=== PATIENT | female | born 1935 | race Caucasian/White ===

== ENCOUNTER → 2017-01-30 | Outpatient (CLI) | payer OTHER, MEDICARE ==
[~2017-01-30] MED LIST: ACETAMINOPHEN650 M5 PO; AMLODIPINE BESYL5 MG PO; ATIVAN0.5 MG OR; ATIVAN0.5 MG PO; ATORVASTATIN CA20 MG PO; BENTYL 10 MG CA10 MG; BENTYL 10 MG CA10 MG PO; BENTYL10 MG PO; CALCIUM 600 +1 EAC1 PO; CENTRUM SILVER1 EAC1 PO; CENTURY SENIOR1 EAC2 PO; CLARITIN10 M2 PO; CLARITIN10 MG PO; CO Q-10100 MG PO; COLACE100 MG PO; DIOVAN160 MG PO; FISH OIL 1,0001 EAC5 PO; HYOSCYAMIN125 MCG/5 PO; LEVSIN OR; LEVSIN0.125 MG PO; LOCOID 0.1% CRE15 GM TOP; LOCOID15 GM TOP; LORAZEPAM 0.50.5 MG PO; MACROBID 100 M100 M1 PO; MACRODANTIN50 MG PO; MECLIZINE HCL25 M1 PO; MULTI-VITAMIN1 EAC5 PO; NEXIUM 40 MG CA40 M1 PO; NEXIUM40 MG PO; ONDANSETRON HCL4 M3 PO; OS-CAL 500+D C1 EACH PO; PHENERGAN 25 MG25 M1 PO; PLAVIX 75 MG TA75 M1 PO; PLAVIX 75 MG TA75 MG PO; PRAVACHOL20 MG PO; PYRIDIUM200 M1 PO; SERTRALINE HCL25 M1 OR; SIMVASTATIN40 MG PO; SULAR OR; SULAR PO; SULAR25.5 MG PO; SYNTHROID100 MCG PO; THYROID 65 MG OR; TIROSINT100 MCG PO; TOPROL XL50 MG PO; TYLENOL325 MG PO; VITAMIN E100 UNI2 PO; VITAMIN E400 UNIT PO; ZOCOR OR; [UNRECOGNIZED DRUG - OTHER] PO
== END ==
LOC: CAT 10:14
DX: R19.7 Diarrhea, unspecified (principal); R14.0 Abdominal distension (gaseous); R10.9 Unspecified abdominal pain

== ENCOUNTER → 2018-01-31 | Outpatient (CLI) | payer OTHER, MEDICARE | LOC: RAD 11:41 | DX: Z12.31 Encounter for screening mammogram for malignant neoplasm of breast (principal) ==

== ENCOUNTER 2018-03-05 10:59 | Emergency (ER) | payer OTHER, MEDICARE ==
[~2018-03-05] VITALS: Ht 149.9 cm; Wt 86.2 kg
--- NOTE | ~2018-03-05 | EKG ---
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
[2018-03-05 11:37] LABS: BASOPHILS 0.4 % (0.0-2.0); EOSINOPHILS 1.1 % (0.0-3.0); HEMATOCRIT 41.3 % (37.0-47.0); HEMOGLOBIN 14.3 gm/dL (12.0-15.0); LYMPHOCYTES 28.2 % (24.0-44.0); MCH 30.4 pg (26.0-34.0); MCHC 34.5 g/dL (28.0-37.0); MCV 88.1 fL (80.0-100.0); MONOCYTES 6.2 % (1.0-8.0); PLATELET COUNT 388 thou/uL (150-400); POLYS 64.1 % (36.0-66.0); RBC 4.69 mil/uL (4.20-5.00); WBC 9.3 thou/uL (4.0-11.0)
[2018-03-05 11:47] LABS: PROTIME 9.9 Seconds (9.3-11.4)
[2018-03-05 13:07] LABS: ANION GAP 8 mmol/L (7-16); BUN 16 mg/dL (7-18); CALCIUM 9.6 mg/dL (8.5-10.1); CHLORIDE 93 mmol/L (98-107); CO2 25 mmol/L (21-32); CREATININE 0.9 mg/dL (0.6-1.0); GLUCOSE 106 mg/dL (74-106); POTASSIUM 4.3 mmol/L (3.5-5.1); SODIUM 126 mmol/L (136-145)
[2018-03-05 13:12] LABS: URINE BILIRUBIN NEGATIVE (Negative); URINE BLOOD NEGATIVE (Negative); URINE CLARITY CLEAR; URINE COLOR YELLOW; URINE GLUCOSE-RANDOM* NEGATIVE (Negative); URINE KETONES NEGATIVE (Negative); URINE LEUKOCYTES NEGATIVE (Negative); URINE NITRITE NEGATIVE (Negative); URINE PROTEIN (DIPSTICK) NEGATIVE (Negative); URINE SPECIFIC GRAVITY <= 1.005 (1.005-1.035); URINE UROBILINOGEN 0.2 E.U./dl (0.2-1.0)
[2018-03-05 13:16] LABS: ALBUMIN 4.2 g/dL (3.4-5.0); SGOT 25 U/L (15-37); SGPT 31 U/L (30-65); TOTAL BILIRUBIN 0.5 mg/dL (<0.1-1.0); TOTAL PROTEIN 7.9 g/dL (6.4-8.2); TROPONIN-I < 0.04 ng/mL (<0.06)
[2018-03-05] MEDS ORDERED: MECLIZINE HCL25 MG PO (15:19)
[2018-03-05 16:09] VITALS: BP 159/65
== END 2018-03-05 16:25 | disposition home or self-care (01) ==
LOC: ER 10:59
PROVIDERS: Physician Assistant
DX: E87.1 Hypo-osmolality and hyponatremia (principal); R10.9 Unspecified abdominal pain; R42 Dizziness and giddiness; R11.0 Nausea; F41.9 Anxiety disorder, unspecified; Z88.1 Allergy status to other antibiotic agents; Z88.5 Allergy status to narcotic agent; Z88.6 Allergy status to analgesic agent

== ENCOUNTER → 2018-09-25 | Outpatient (CLI) | payer OTHER, MEDICARE ==
[~2018-09-25] VITALS: Ht 149.9 cm; Wt 81.6 kg
[~2018-09-25] MED LIST changes: +AMLODIPINE BESY10 MG PO; +CENTRUM SILVER1 EAC4 PO; +LOSARTAN POTAS100 MG PO; +MECLIZINE HCL25 MG PO; +METOPROLOL SUCC50 MG PO; +PRAVASTATIN SOD80 MG PO; +PRESERVISION A1 EAC2 PO; +SYNTHROID100 MC1 PO
--- NOTE | ~2018-09-25 | PATH ---
[facility] [address] [place] [address] PATHOLOGY RPT PROCEDURE Name: SABRINA GAVIRIA Angela Room #: REG SLIME Manzano.#: [id number] Admission: 09/25/18 Date of : 39 Discharge: Report #: [id number] Path Case #: [id number] [facility] Accession Number: [id number] . 01 Material submitted: . BIOPSY - GASTRIC R/O H. H PYLORI . 01 Clinical history: . Pre-OP DX: Abdominal pain Post-OP DX: Gastritis, hiatal hernia . 02 Diagnosis: Gastric mucosa, gastric R/O H. pylori, endoscopic biopsy: - Mild chronic inflammation. - Negative for intestinal metaplasia or atrophy. - Negative for Helicobacter pylori (properly controlled immunohistochemical stain performed). . (IUV:laura; 09/26/2018) QMS/09/26/2018 . 02 Electronically signed: . Mercedes Whyte MD, Pathologist NPI- [id number] . 01 Gross description: . Received in formalin labeled "Sabrina Gaviria, gastric biopsy," are 2 segments of hicks soft tissue measuring 0.9 x 0.3 x 0.3 cm in aggregate dimensions and ranging from 0.3 to 0.6 cm in maximum dimension. The specimen is submitted entirely in cassette A1. (TSD; 09/25/2018) TOB/TOB . 02 Pathologist provided ICD-10: K29.50 . 02 CPT . 008301, H12742 Specimen Comment: A courtesy copy of this report has been sent to Specimen Comment: [phone], . Specimen Comment: Report sent to / DR JOEL Specimen Comment: A duplicate report has been generated due to demographic updates. Performed at: [address] [place] [id number] [id number] MD Chavez Garcia MD Phone: [phone] [facility] [place] [address] PATHOLOGY RPT PROCEDURE Name: SABRINA GAVIRIA Room #: REG SLIME Boyd#: [id number] Admission: 09/25/18 Date of : 39 Discharge: Report #: [id number] Path Case #: [id number] Performed at: [address] [place] [address] [address] [place], [place] [id number] MD Mercedes Whyte MD Phone: [phone]
--- NOTE | ~2018-09-25 | P ---
[facility] [place] [address] PROCEDURE REPORT Name: WOLF GAVIRIA [facility] [id number] Admission: 09/25/18 Attend Phys: Chapin Rm Discharge: Date of : 37 Report #: [id number] THIS REPORT FOR: //name// CC: Chapin Tompkins MD DATE OF SERVICE: 09/25/2018 PROCEDURE PERFORMED: Upper endoscopy with biopsies. HISTORY OF PRESENT ILLNESS: The patient is an 83-year-old female with a history of carcinoid as well as mid epigastric abdominal pain and low abdominal pain at times. She has a known large hiatal hernia, gastroesophageal reflux disease, takes Nexium on a daily basis. Denies any significant heartburn, but does report increased belching. She denies any dysphagia or odynophagia. She had been on Plavix for a history of TIA. This has been held for the last few days. She denies any nausea or vomiting. She underwent an octreotide scan on 08/21/2018. This showed mild activity in the left lung base, which is also near her large hiatal hernia in the region of the stomach. A CT scan of the abdomen and pelvis earlier in the year showed sludge within the gallbladder, with possible stones and a duodenal diverticulum. Plan is for upper endoscopy. DESCRIPTION OF PROCEDURE: The risks and benefits of the procedure were explained to the patient; those risks including but not limited to bleeding, perforation and the risk of sedation. She understood these risks and gave informed consent. Sedation was given using propofol per anesthesia. Next, using a standard Olympus upper endoscope, the scope was placed in the patient's mouth and advanced under direct vision through the esophagus, stomach and into the first portion of the duodenum. The larynx was normal in appearance. The distal esophagus was somewhat tortuous, but the GE junction was normal. Upon entering the stomach, an obvious large hiatal hernia was noted. There was a small amount of fluid. This was aspirated away. I tried to advance the scope through the hernia, but was unsuccessful. I then placed a stiffening wire within the scope and I was able to advance the scope with some difficulty through the hiatal hernia. Again, approximately 70% of her stomach within the hiatal hernia. I was able to advance the scope into the gastric antrum, which was normal in appearance. The pylorus was normal and patent. I was able to advance the scope into the duodenal bulb and the first portion, but no further. The duodenal mucosa was normal in appearance. The scope was then brought back up into the patient's stomach. Multiple gastric polyps were noted. Because of her symptoms, biopsies were obtained to rule out the possibility of H. pylori. There was no evidence of ulcerations or erosions. No mass lesions were noted within the stomach, but again visualization was somewhat limited due to her large hiatal hernia. The scope was then slowly withdrawn and the procedure [address] [address] PROCEDURE REPORT Name: WOLF GAVIRIA Angela Room #: REG SLIME Boyd#: [id number] Admission: 09/25/18 Attend Phys: Chapin Rm Discharge: Date of : 37 Report #: [id number] terminated. The patient tolerated the procedure well. IMPRESSION: 1. Large hiatal hernia, likely causing increased symptoms of belching and reflux. The patient is on daily Nexium. 2. 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 3. Otherwise normal upper endoscopy. RECOMMENDATIONS: 1. Await biopsy results. 2. Continue daily Nexium. 3. I suspect the patient's large hiatal hernia is causing symptoms of intermittent burping. She is not having nausea or vomiting at this time. She does have mild mid epigastric abdominal pain. There was no evidence of any mass lesions on upper endoscopy today. At this point, we would continue current regimen. If symptoms become worse, could consider surgical options, but the patient is at a higher risk for surgery due to her age and other medical problems. Thank you for allowing me to participate in her care. <ELECTRONICALLY SIGNED> By: Chapin Zarate MD 09/27/18 0808 0845 1026 Chapin Zarate MD /nt
== END | disposition home or self-care (01) ==
LOC: GI 06:45
DX: K29.50 Unspecified chronic gastritis without bleeding (principal); K31.7 Polyp of stomach and duodenum; K44.9 Diaphragmatic hernia without obstruction or gangrene; K21.9 Gastro-esophageal reflux disease without esophagitis; I10 Essential (primary) hypertension; E78.5 Hyperlipidemia, unspecified; E03.9 Hypothyroidism, unspecified; F32.9 Major depressive disorder, single episode, unspecified; F41.9 Anxiety disorder, unspecified; Z95.5 Presence of coronary angioplasty implant and graft; Z86.73 Personal history of transient ischemic attack (TIA), and cerebral infarction without residual deficits; Z86.012 Personal history of benign carcinoid tumor; Z98.0 Intestinal bypass and anastomosis status; Z90.49 Acquired absence of other specified parts of digestive tract; Z98.890 Other specified postprocedural states; Z79.899 Other long term (current) drug therapy
CPT/HCPCS: 62110; 62900

== ENCOUNTER 2019-03-15 17:35 | Emergency (ER) | payer OTHER, MEDICARE ==
[~2019-03-15] VITALS: Ht 160 cm; Wt 111.1 kg
[2019-03-15 18:44] LABS: URINE BILIRUBIN NEGATIVE (Negative); URINE BLOOD NEGATIVE (Negative); URINE CLARITY CLEAR; URINE COLOR YELLOW; URINE GLUCOSE-RANDOM* NEGATIVE (Negative); URINE KETONES NEGATIVE (Negative); URINE LEUKOCYTES-REFLEX NEGATIVE (Negative); URINE NITRITE-REFLEX NEGATIVE (Negative); URINE PROTEIN (DIPSTICK) NEGATIVE (Negative); URINE SPECIFIC GRAVITY <= 1.005 (1.005-1.035); URINE UROBILINOGEN 0.2 E.U./dl (0.2-1.0)
[2019-03-15 19:15] LABS: ABSOLUTE NEUTROPHILS 4.1 thou/uL (1.4-8.2); BASOPHILS 0.7 % (0.0-2.0); EOSINOPHILS 2.8 % (0.0-3.0); HEMATOCRIT 36.4 % (37.0-47.0); HEMOGLOBIN 12.5 gm/dL (12.0-15.0); LYMPHOCYTES 22.2 % (24.0-44.0); MCH 30.2 pg (26.0-34.0); MCHC 34.5 g/dL (28.0-37.0); MCV 87.8 fL (80.0-100.0); MONOCYTES 8.5 % (1.0-8.0); PLATELET COUNT 347 thou/uL (150-400); POLYS 65.8 % (36.0-66.0); RBC 4.15 mil/uL (4.20-5.00); RDW 14.2 % (10.5-14.5); WBC 6.3 thou/uL (4.0-11.0)
[2019-03-15 19:20] LABS: CALCIUM 9.5 mg/dL (8.5-10.1); CREATININE 0.9 mg/dL (0.6-1.0); POTASSIUM 4.1 mmol/L (3.5-5.1)
[2019-03-15 22:41] VITALS: BP 165/69
--- NOTE | 2019-03-16 22:40 | EKG ---
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: : 1935 Requested By: Jurgen Mina Order Number: [id number] MD: Rhoit Ballard Measurements Intervals [place] Rate: 77 P: 38 [place]: 192 QRS: -3 QRSD: 92 T: 21 QT: 378 QTc: 428 Interpretive Statements Sinus rhythm Low voltage, precordial leads Probable anteroseptal infarct, old Compared to ECG 03/05/2018 11:20:04 Low QRS voltage now present Myocardial infarct finding now present Electronically Signed On 03-16-2019 22:40:32 CDT by Rohit Ballard [email or web address] ��������������������������������������������� <ELECTRONICALLY SIGNED> ���������������������������������������� By: Rohit Ballard MD ��������������������������������������������� 03/16/19 2240 1753 1753 Rohit Ballard MD /EPI
== END 2019-03-15 22:42 | disposition home or self-care (01) ==
LOC: ER 17:35
PROVIDERS: Emergency Medicine
DX: R53.1 Weakness (principal); I10 Essential (primary) hypertension; E78.5 Hyperlipidemia, unspecified; E03.9 Hypothyroidism, unspecified; K21.9 Gastro-esophageal reflux disease without esophagitis; Z86.73 Personal history of transient ischemic attack (TIA), and cerebral infarction without residual deficits; Z79.899 Other long term (current) drug therapy; Z88.1 Allergy status to other antibiotic agents; Z88.5 Allergy status to narcotic agent; Z88.6 Allergy status to analgesic agent; Z88.8 Allergy status to other drugs, medicaments and biological substances

== ENCOUNTER → 2019-03-28 | Outpatient (CLI) | payer OTHER, MEDICARE | LOC: RAD 01:03 | DX: Z12.31 Encounter for screening mammogram for malignant neoplasm of breast (principal) ==

== ENCOUNTER 2019-04-04 16:52 | Emergency (ER) | payer OTHER, MEDICARE ==
[~2019-04-04] VITALS: Ht 175.3 cm; Wt 108.0 kg
[2019-04-04 17:37] LABS: ABSOLUTE NEUTROPHILS 4.1 thou/uL (1.4-8.2); EOSINOPHILS 1.9 % (0.0-3.0); HEMOGLOBIN 12.1 gm/dL (12.0-15.0); LYMPHOCYTES 24.6 % (24.0-44.0); MCHC 34.5 g/dL (28.0-37.0); MONOCYTES 9.6 % (1.0-8.0); PLATELET COUNT 319 thou/uL (150-400); POLYS 62.9 % (36.0-66.0); RBC 4.03 mil/uL (4.20-5.00); WBC 6.6 thou/uL (4.0-11.0)
[2019-04-04 17:47] LABS: ANION GAP 9 mmol/L (7-16); BUN 14 mg/dL (7-18); CALCIUM 9.2 mg/dL (8.5-10.1); CHLORIDE 91 mmol/L (98-107); CO2 26 mmol/L (21-32); CREATININE 0.8 mg/dL (0.6-1.0); GLUCOSE 99 mg/dL (74-106); POTASSIUM 4.2 mmol/L (3.5-5.1); SODIUM 126 mmol/L (136-145)
[2019-04-04 17:55] LABS: TROPONIN-I <0.06 ng/mL (<0.06)
[2019-04-04 17:59] LABS: URINE BILIRUBIN NEGATIVE (Negative); URINE BLOOD NEGATIVE (Negative); URINE CLARITY CLEAR; URINE COLOR YELLOW; URINE GLUCOSE-RANDOM* NEGATIVE (Negative); URINE KETONES NEGATIVE (Negative); URINE NITRITE-REFLEX NEGATIVE (Negative); URINE PROTEIN (DIPSTICK) NEGATIVE (Negative); URINE SPECIFIC GRAVITY <= 1.005 (1.005-1.035); URINE UROBILINOGEN 0.2 E.U./dl (0.2-1.0)
[2019-04-04 18:00] LABS: URINE LEUKOCYTES-REFLEX 1+ (Negative)
[2019-04-04 18:09] LABS: BACTERIA-REFLEX None Seen /HPF (None Seen); CASTS None Seen /LPF (None Seen); CRYSTALS None Seen /LPF (None Seen); SQUAMOUS None Seen /LPF (0-3); URINE RBC None Seen /HPF (0-2); URINE WBC-REFLEX 6-15 Few /HPF (0-5)
[2019-04-04 21:43] VITALS: BP 184/75
--- NOTE | 2019-04-05 10:57 | EKG ---
[place] [address] [facility] [place] [address] ELECTROCARDIOGRAM REPORT Name: WOLF GAVIRIA Room #: [facility]#: [id number] ������������������ Admission: 04/04/19 ������������������ Attend Phys: Discharge: 04/04/19 ������������������ Date of : 39 Report #: [id number] ����������������������������������������������������������������� [id number] THIS REPORT FOR: //name// [facility] ED Test Date: 2019-04-04 Test Time: 17:00:09 Pat Name: WOLF GAVIRIA Department: Room: Gender: F Home Health Attendant: : 1935 Requested By: Abhi Nam Order Number: [id number] MD: Zeyad Arciniega Measurements Intervals [place] Rate: 85 P: 23 W[place]: 181 QRS: -9 QRSD: 91 T: 15 QT: 369 QTc: 439 Interpretive Statements Sinus rhythm No significant abnormality Compared to ECG 03/15/2019 17:53:03 Septal Q waves are no longer present Electronically Signed On 04-05-2019 10:57:16 CDT by Zeyad Arciniega [email or web address] ��������������������������������������������� <ELECTRONICALLY SIGNED> ���������������������������������������� By: Zeyad Arciniega MD, [facility] ��������������������������������������������� 04/05/19 1057 1700 99 Zeyad Arciniega MD, FACC /EPI
== END 2019-04-04 22:20 | disposition home or self-care (01) ==
LOC: ER 16:52
PROVIDERS: Emergency Medicine
DX: E87.1 Hypo-osmolality and hyponatremia (principal); N39.0 Urinary tract infection, site not specified; F41.9 Anxiety disorder, unspecified; I10 Essential (primary) hypertension; E78.5 Hyperlipidemia, unspecified; E03.9 Hypothyroidism, unspecified; K21.9 Gastro-esophageal reflux disease without esophagitis; Z88.1 Allergy status to other antibiotic agents; Z88.5 Allergy status to narcotic agent; Z91.041 Radiographic dye allergy status; Z88.8 Allergy status to other drugs, medicaments and biological substances

== ENCOUNTER → 2019-06-24 | Outpatient (CLI) | payer OTHER, MEDICARE ==
[~2019-06-24] MED LIST changes: +KEFLEX500 M1 PO
== END ==
LOC: CAT 09:08
DX: N28.1 Cyst of kidney, acquired (principal); K44.9 Diaphragmatic hernia without obstruction or gangrene; I25.10 Atherosclerotic heart disease of native coronary artery without angina pectoris; K86.89 Other specified diseases of pancreas; J98.4 Other disorders of lung; K76.89 Other specified diseases of liver; M41.86 Other forms of scoliosis, lumbar region; M51.36 Other intervertebral disc degeneration, lumbar region; Z88.0 Allergy status to penicillin; Z88.8 Allergy status to other drugs, medicaments and biological substances

== ENCOUNTER → 2019-12-22 | Outpatient (CLI) | payer OTHER, MEDICARE | LOC: RAD 08:51 | DX: S39.92XA Unspecified injury of lower back, initial encounter (principal); M43.17 Spondylolisthesis, lumbosacral region; M47.818 Spondylosis without myelopathy or radiculopathy, sacral and sacrococcygeal region; X58.XXXA Exposure to other specified factors, initial encounter; Y93.89 Activity, other specified; Y92.89 Other specified places as the place of occurrence of the external cause; Y99.8 Other external cause status ==

== ENCOUNTER → 2020-01-02 | Outpatient (CLI) | payer OTHER, MEDICARE | LOC: SJCVC 13:22 | DX: I25.10 Atherosclerotic heart disease of native coronary artery without angina pectoris (principal); I10 Essential (primary) hypertension; E78.5 Hyperlipidemia, unspecified; Z90.49 Acquired absence of other specified parts of digestive tract ==

== ENCOUNTER 2020-01-28 14:19 | Inpatient (IN) | payer OTHER, MEDICARE ==
[2020-01-28] VITALS (19 sets, daily range): BP systolic 138–179; BP diastolic 58–74
[~2020-01-28] VITALS: Ht 149.9 cm; Wt 78.1 kg
--- NOTE | ~2020-01-28 | HC ---
[facility] [place] [address] CONSULTATION Name: WOLF GAVIRIA Room #: 215-P ADM IN M.R.#: [id number] Admission: 01/28/20 Attend Phys: Christoph Miller MD Discharge: Date of : 37 Report #: [id number] THIS REPORT FOR: cc: Flaquito Tompkins MD, Rene P. MD Smithson, David G. MD ~ CC: Christoph Tompkins DATE OF SERVICE: 02/02/2020 HISTORY OF PRESENT ILLNESS: The patient is an 84-year-old white female who was admitted on 01/28/2020 after a fall sustaining an injury on the back of her head. She was noted to have a small subdural hematoma frontoparietal and falx area from contrecoup brain trauma. She was seen by Neurosurgery, subdural hematoma noted status post fall. There is a laceration that was stapled over the left parietal occipital area. She initially had a small right frontal subdural hematoma and then followup CT showed a new right frontal and inferior hemorrhage. She was kept in the ICU. The patient was on Plavix premorbidly for TIAs. The Plavix was stopped upon admission. Followup CT scan today shows stable right frontal intraparenchymal hemorrhage and possible subdural, right frontal hemorrhage. No new hemorrhage was noted. The patient is having problems with dizziness and needs assistance with basic functional mobility and ADLs. We are seeing her in rehabilitation medicine consultation. There is also concern regarding decreased safety regarding her deficits. PAST MEDICAL HISTORY: Includes TIAs, for which she was on Plavix, history of carcinoid tumor, irritable bowel syndrome, anxiety, hypertension, hyperlipidemia, controlled GERD. PAST SURGICAL HISTORY: Appendectomy, T and A, bowel resection x 2 and colonoscopy. MEDICATIONS: Please see the full medication listing. HABITS: No history of tobacco or alcohol abuse. ALLERGIES: Multiple. Please see the list. SOCIAL HISTORY: Lives with her and there is a son and daughter apparently they both live there as well. The daughter is a teacher and is currently at home with the COVID-19 pandemic. We are currently suffering through. The patient did not utilize gait aids premorbidly. One to two steps in and 13 steps down to the basement which she notes she probably will need to go down there. [address] [address] CONSULTATION Name: WOLF GAVIRIA Room #: 215-P [facility] IN M.R.#: [id number] Admission: 01/28/20 Attend Phys: Christoph Miller MD Discharge: Date of : 37 Report #: [id number] REVIEW OF SYSTEMS: Did not offer any current complaints of chest pain, shortness of breath, abdominal discomfort. She does note some dizziness when up and moving. PHYSICAL EXAMINATION: GENERAL: She is an 84-year-old white female in no obvious distress. VITAL SIGNS: Last recorded temperature 98.6, pulse 66, respirations 20, blood pressure 147/60. NEUROLOGIC: The patient is alert. She is pleasant. HEENT: Appeared to be benign. EOMs are full. She did have the laceration over her scalp area. She follows basic 1 step commands. EXTREMITIES: Functional range of motion of both upper extremities. Strength is grade 4- to 4/5. DTRs are trace to 1. Lower extremities functional range of motion, strength is grade 4-/5. DTRs are trace to 1. She is min assist with sit to stand. Gait was 60 feet min assist and handheld assistance. She has some dizziness and some safety concerns in occupational therapy. ASSESSMENT: An 84-year-old white female with the following problem list: 1. Fall with brain trauma. 2. Right frontoparietal and falx subdural hematoma from contrecoup brain trauma. 3. 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 Last sodium is still decreased at 124. 4. Hypertension. 5. Hyperlipidemia. 6. Hypothyroidism. PLAN: The patient is a candidate and would benefit from an acute in-hospital inpatient rehabilitation stay. She has some decreased insight into her deficits. 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 Would recommend an acute in-hospital inpatient rehabilitation stay when medically cleared. Thank you for asking us to assist in this patient's care. By: 1203 1225 Trvein Lee MD /[facility]
[2020-01-28 15:23] LABS: ABSOLUTE NEUTROPHILS 9.7 thou/uL (1.4-8.2); BASOPHILS 0.4 % (0.0-2.0); EOSINOPHILS 0.9 % (0.0-3.0); HEMATOCRIT 32.6 % (37.0-47.0); HEMOGLOBIN 11.3 gm/dL (12.0-15.0); LYMPHOCYTES 14.8 % (24.0-44.0); MCH 30.7 pg (26.0-34.0); MCHC 34.6 g/dL (28.0-37.0); MCV 88.6 fL (80.0-100.0); MONOCYTES 5.8 % (1.0-8.0); PLATELET COUNT 336 thou/uL (150-400); POLYS 78.1 % (36.0-66.0); RBC 3.68 mil/uL (4.20-5.00); RDW 13.7 % (10.5-14.5); WBC 12.4 thou/uL (4.0-11.0)
[2020-01-28 15:31] LABS: CALCIUM 9.3 mg/dL (8.5-10.1); CREATININE 0.8 mg/dL (0.6-1.0); MAGNESIUM 1.7 mg/dL (1.8-2.4); POTASSIUM 3.9 mmol/L (3.5-5.1)
[2020-01-28] MEDS ORDERED: PRAVACHOL40 M1 PO (16:43)
[2020-01-28] MEDS ORDERED: GLYCOLAX119 GM PO (16:43)
[2020-01-29] VITALS (26 sets, daily range): BP systolic 134–174; BP diastolic 51–92
--- NOTE | 2020-01-29 05:25 | NUR ---
ASSUMED PT CARE AROUND 1910. PT RESTING IN BED WATCHING TELEVISION. PT IS A0X4 AND REMAINED THRU SHIFT. PT HAD C/O OF HEADACHE AND GENERAL BODY ACHES FROM FALL AND HEAD TRAUMA. PT IS SCHEDULED FOR CT 01/28. PT PLACED ON 2L OXYGEN WHILE SLEEPING FOR COMFORT. PT VOIDED IN BEDPAN AND ON CLEAR LIQUIDS. PT CONSENTS AND POC FOR ADMISSION COMPLETED. CLOSELY MONITORING PT THRU SHIFT FOR ANY CHANGES.
[2020-01-29 05:29] LABS: HEMATOCRIT 30.8 % (37.0-47.0); MCH 31.4 pg (26.0-34.0); MCHC 35.6 g/dL (28.0-37.0); MCV 88.3 fL (80.0-100.0); RBC 3.49 mil/uL (4.20-5.00); RDW 13.5 % (10.5-14.5); WBC 7.6 thou/uL (4.0-11.0)
[2020-01-29 05:31] LABS: CALCIUM 8.7 mg/dL (8.5-10.1); CREATININE 0.7 mg/dL (0.6-1.0); POTASSIUM 4.2 mmol/L (3.5-5.1)
--- NOTE | 2020-01-29 08:54 | EKG ---
[facility] [place] [address] ELECTROCARDIOGRAM REPORT Name: WOLF GAVIRIA Room #: 243-P ADM IN M.R.#: [id number] Admission: 01/28/20 Attend Phys: Christoph Miller MD Discharge: Date of : 37 Report #: [id number] THIS REPORT FOR: cc: Flaquito Tompkins MD, Rene P. 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: KACIE : 1935 Requested By: Jurgen Mina Order Number: [id number] MD: Zeyad Arciniega Measurements Intervals [place] Rate: 73 P: 26 [place]: 198 QRS: -9 QRSD: 93 T: 6 QT: 408 QTc: 450 Interpretive Statements Sinus rhythm Poor R wave progression Compared to ECG 04/04/2019 17:00:09 No significant change was found Electronically Signed On 01-29-2020 8:53:27 CDT by Zeyad Arciniega [email or web address] <ELECTRONICALLY SIGNED> By: Zeyad Arciniega MD, [facility] 01/29/20 0853 1512 1512 Zeyad Arciniega MD, [facility] /EPI
--- NOTE | 2020-01-29 10:39 | NUR ---
chart review. cm spoke with bedside nurse to see if phone could be used in pt room to talk with omar, "yes will let you know when it is pulled in"/bedside nurse. cm called daniela, who stated to rex tariq " i don't have my hearing aids in yet you talk with her"/daniela. cm intro to cm, transition of care ie hh and skilled rehab with daughter via phone call. she reported " we live in ranch style home, 2 maria ines steps from front door, 3 steps in back and that's were she fell at. 13 steps, hr on right side. to laundry room and she was doing that prior to hospital, has shower chair if needed. rex tariq works during the day and omar helps with spouse and son. only had 2 falls in last year. no hh or rehab in past. with everything going on right know, hh would be ok if needed but not going to be accepting of going to rehab now. she is independent. manage own medication and drives when she has to"/rex tariq. will cont following as needed for dc needs.
--- NOTE | 2020-01-29 19:39 | NUR ---
ASSUMED CARE AT 0700, ASSESSMENT AND VITAL SIGNS COMPLETED PER ICU PROTOCOL. DR. GONZALEZ ROUNDED IN AM, NEW ORDERS RECEIVED AND EXECUTED. DR. MATA ROUNDED, NEW ORDERS RECEIVED AND EXECUTED. DR. MATA EXTENDED PT'S ICU STATUS DUE TO CT RESULTS. REPEAT CT IN THE AM.
[2020-01-30] VITALS (20 sets, daily range): BP systolic 136–179; BP diastolic 50–124
--- NOTE | 2020-01-30 07:20 | NUR ---
NO CHANGES OVERNIGHT. NEURO INTACT. PT C/O MINOR BODY ACHES, DENIES HEADACHE. PT C/O SOME NAUSEA OVERNIGHT. PT IS PROGRESSING TOWARDS GOALS. WILL CONTINUE TO MONITOR.
[2020-01-30 08:28] LABS: CALCIUM 9.6 mg/dL (8.5-10.1); CREATININE 0.7 mg/dL (0.6-1.0); POTASSIUM 3.8 mmol/L (3.5-5.1)
--- NOTE | 2020-01-30 11:16 | NUR ---
discussed during los, possible dc out of icu today, then physical therapy to eval. possible dc over the weekend. will cont following as needed for dc needs.
--- NOTE | 2020-01-30 15:06 | NUR ---
TRANSFER TO ROOM 215 . TRANSFERED VIA WHEEL CHAIR WITH ALL BELOINGINGS AND REPORT GIVVEN TO RN TO ASSUME CARE . NO ISSUES OR CONCERNS NOTEDL
--- NOTE | 2020-01-30 16:18 | NUR ---
Pt transfered out of ICU today. Therapy evals are pending. Pt's goal is to return directly home with her family. Will continue to follow along and await any rehab recommendations.
--- NOTE | 2020-01-30 18:00 | NUR ---
ASSUMED CARE OF PT AT APPROX 1530 FROM ICU D/T A HEAD INJURY D/T A FALL. ASSESSMENT CHARTED. PT A&OX4, NO C/O PAIN. PT REPORTS CONTINUED NAUSEA, BUT NO VOMITING. REPORTS FEELING DIZZY WHEN GETTING UP TO USE BATHROOM. USED BSC INSTEAD. WILL CONTINUE TO MONITOR AND FOLLOW POC.
[2020-01-31] VITALS (9 sets, daily range): BP systolic 151–180; BP diastolic 52–65
--- NOTE | 2020-01-31 06:09 | NUR ---
Pt. c/o generalized discomfort described as mild ache at HS but denied need for pain med. Requested O2 at 2L/NC at HS for stating that while she was in the ICU staff had to wake her up to instruct her to breath again because she was desatting. No respiratory distress. Zofran given x 2 with good relief.Up with assist to commode. pt. gets dizzy when getting up. Encouraged to call for assist. Will continue to monitor.
--- NOTE | 2020-01-31 17:51 | NUR ---
ASSUMMED PT CARE AT APPROXIMATELY 0700. PT A&O X4. ASSESSMENT CHARTED. FALL PRECAUTIONS IN PLACE. PT DENIES HAVING CHEST PAIN. PT DENIES HAVING SOB. PT DENIED HAVING ACUTE PAIN. PT STATED SHE HAD NAUSEA. PT RECIEVED ANTI-EMETICS. PT STATED ANTI-EMETICS HELPED RELIEVE NAUSEA. PT STATED SHE HAD MOTION SICKNESS AND FELT DIZZY. INFORMED DR. GONZALEZ. DR. GONZALEZ ADDED NEW MED. NEW MED IMPLEMENTED. PT STATED SHE CONT. TO HAVE DIZZINESS AND NEW MED DID NOT HELP. INFORMED DR. GONZALEZ. DR. GONZALEZ STATED HE WOULD LIKE TO WAIT FOR MORE DOSES TO BE GIVEN OF THE SCHEDULED MED UNTIL ADDING SOMETHING NEW. INFORMED DR. GONZALEZ OF PT HAVING HIGH BP. DRKatie ORDERED NEW MED. NEW MED GIVEN. PT BP INCREASED. INFORMED DR. GONZALEZ. DR. GONZALEZ ORDERED NEW MED. NEW MED GIVEN. PT BP STABLE. VITAL SIGNS STABLE. PT COMFORTABLE IN BED. PT DENIES HAVING CONCERNS. ENCOURAGING PT TO EAT AND DRINK FLUIDS. PT HAS POOR APPETITE.
--- NOTE | 2020-01-31 17:58 | NUR ---
PT CARE ASSUMED APPROXIMATELY 0700. PT ASSESSMENTS AAS CHARTED. PT MEDICATION CHARTED. PT DENIES PAIN. PT DENIES SOA. PT HAVING DIFFICULTY EATING WITHOUT NAUSEA. PT HAVING PERSISTANTLY HIGH BP'S. DR. GONZALEZ NOTIFIED. PT ENCOURAGED TO INCREASE FLUIDS.
[2020-02-01 04:45] VITALS: BP 162/63
[2020-02-01 04:49] LABS: HEMATOCRIT 30.7 % (37.0-47.0); HEMOGLOBIN 10.8 gm/dL (12.0-15.0); MCH 31.1 pg (26.0-34.0); MCHC 35.4 g/dL (28.0-37.0); MCV 87.8 fL (80.0-100.0); RBC 3.49 mil/uL (4.20-5.00); RDW 13.3 % (10.5-14.5); WBC 8.1 thou/uL (4.0-11.0)
[2020-02-01 05:02] LABS: CALCIUM 8.6 mg/dL (8.5-10.1); CREATININE 0.7 mg/dL (0.6-1.0); POTASSIUM 3.4 mmol/L (3.5-5.1)
--- NOTE | 2020-02-01 06:21 | NUR ---
Pt. stated she slept better last night. Still gets dizzy when getting up but not as bad and she does not get nauseous anymore. No prn nausea med given this shift. Tolerating room air well then O2 at 2L/NC per order. Denies any pain. Bed alarm on for safety. [place] intact on back of her head laceration. Making progress towards care plan goals.
[2020-02-01 08:00] VITALS: BP 153/69
[2020-02-01 16:00] VITALS: BP 148/66
--- NOTE | 2020-02-01 18:13 | NUR ---
RECEIVED PT'S CARE AROUND 0710; PT. ON BED; ALERT; DURING AM ASSESSMENT PT. AOX4; NO C/O PAIN; EDUCATED ABOUT FALL PRECAUTIONS; AM MEDICATIONS GIVEN; ST. UNDERSTANDING; NO C/O DIZZINESS WHILE RESTING; SR ON THE MONITOR; GOOD APPETITE; NO C/O NAUSEA; MONITORING; ASSESSMENT CHARGED; FOLLOWING POC; WILL PASS ON REPORT;
[2020-02-01 20:08] VITALS: BP 139/59
--- NOTE | 2020-02-02 03:52 | NUR ---
ASSESSMENT DOCUMENTED.PT BEEN RESTING IN NO ACUTE DISTRESS.A/OX4.VSS.LACERATION TO BACK OF THE HEAD INTACT,NO ACTIVE BLEEDING.PT DENIES EPISODES OF DIZZINESS AT THIS TIME.UP WITH ASSIST TO BR,GAIT UNSTEADY.DENIES PAIN.POC IS TO CONT TO MONITOR PER POC.
[2020-02-02 04:19] VITALS: BP 145/50
[2020-02-02 07:30] VITALS: BP 147/60
[2020-02-02 08:49] VITALS: BP 147/60
--- NOTE | 2020-02-02 12:58 | NUR ---
PATIENT WAS SEEN BY DR. HARRINGTON, REHAB TELEVISION ANCHOR, WHO NOTED THAT PT MEETS CRITERIA FOR ADMISSION TO ACUTE REHAB. PT HAS BEEN GIVEN ALL OF THE INFORMATION, AND HAS AGREED TO COME TO THE REHAB UNIT FOR A "SHORT STAY," UNTIL SHE IS SAFE TO RETURN HOME WITH HER FAMILY. FAMILY HAS BEEN NOTIFIED, AND WE WILL PLAN TO BRING THIS PATIENT TO REHAB TODAY. THANK YOU FOR THIS REFERRAL.
--- NOTE | 2020-02-02 15:21 | NUR ---
ASSESSMENT CHARTED. PT ALERT AND ORIENTED. VSS. DENIED HAVING PAIN OR DISCOMFORT. EVALUATED BY PT/OT. SEEN BY DR. GONZALEZ. ORDERS GIVEN TO TRANSFER PT TO [address] [place] [address]. REPORT CALLED IN TO WINSOME ROBERTS. FAMILY NOTIFIED AND PT NOTIFIED.
== END 2020-02-02 15:24 | disposition home health service (06) | DRG 86 ==
LOC: ER 14:19 → ICU 16:21 → EROBS 16:21 → ICU 17:00 → 2N 01-30 16:03 → ENTRNSPT 02-02 14:53 → 2N 02-02 15:24
PROVIDERS: Emergency Medicine; ADMIT Hospitalist
PROC: 0HQ0XZZ Repair Scalp Skin, External Approach (ICD-10-PCS; principal; 2020-01-28)
DX: S06.5X0A Traumatic subdural hemorrhage without loss of consciousness, initial encounter (principal); E87.1 Hypo-osmolality and hyponatremia; S01.01XA Laceration without foreign body of scalp, initial encounter; K58.9 Irritable bowel syndrome, unspecified; F41.9 Anxiety disorder, unspecified; E78.5 Hyperlipidemia, unspecified; E03.9 Hypothyroidism, unspecified; I10 Essential (primary) hypertension; K21.9 Gastro-esophageal reflux disease without esophagitis; Z23 Encounter for immunization; Z90.49 Acquired absence of other specified parts of digestive tract; Z79.899 Other long term (current) drug therapy; Z88.1 Allergy status to other antibiotic agents; Z91.041 Radiographic dye allergy status; Z88.5 Allergy status to narcotic agent; Z91.048 Other nonmedicinal substance allergy status; Y93.89 Activity, other specified; Y99.8 Other external cause status; Z86.73 Personal history of transient ischemic attack (TIA), and cerebral infarction without residual deficits; Z91.81 History of falling; W10.8XXA Fall (on) (from) other stairs and steps, initial encounter; Y92.038 Other place in apartment as the place of occurrence of the external cause
CPT/HCPCS: 10078; 10081

== ENCOUNTER 2020-02-02 14:08 | Inpatient (IN) | payer OTHER, MEDICARE ==
[~2020-02-02] VITALS: Ht 149.9 cm; Wt 78.2 kg
[~2020-02-02 14:08] MED LIST changes: +GLYCOLAX119 GM PO; +PRAVACHOL40 M1 PO
--- NOTE | 2020-02-02 15:40 | NUR ---
pt going to acute rehab today. cm visited with pt daughter chandni via phone call when she was in the icu last week. will cont dcp, and transition of care. chart review, pt lives with her daughter chandni, who works during the day time, her spouse and her son. omar helps care for her spouse and son in the home. all live in a house 2 steps from front door, 3 steps from back door. 13 steps inside down to the laundry room with a hand rail. she was able to go up and down the stair. independent. has shower chair if needed. manage own medication. only drives when she has to. no hh or rehab in the past. per chart. will cont following as needed for dc needs.
--- NOTE | 2020-02-02 15:47 | NUR ---
1515 ADMITTED TO ROOM 510. PATIEN ARRIVED VIA W/C. PATIENT IS ALERT AND ORIENTED X4. PATIENT NÚÑEZ'S, SCOURER ARE STRONG. LUNGS ARE CLEAR. ABD IS SOFT WITH BSX4. CONSENTS SIGNED. PATIENT IS UP WITH GAIT BELT AND WALKER TO THE BATHROOM TO VOID LEONARD COLORED URINE. FALL AND SAFETY PROTOCOLS IN PLACE. DENIES PAIN. PATIENT HAS 2 TRE IN THE TOP OF HER HEAD. WILL GET OT/PT/ST EVALS IN THE A.M. WILL CONTINUE TO MONITER.
[2020-02-02 17:32] VITALS: BP 159/75
[2020-02-02 19:59] VITALS: BP 138/71
--- NOTE | 2020-02-03 05:17 | NUR ---
Assumed pt care at 1900. A/OX4, VSS.Denies pain on assessment but complains of soreness on the back of her head where she has 2 elodia.Up with SBA/gaitbelt w/o problems. Continent of B&B. Fall precautions in place, calls approp for help. Resting quietly at this time,will continue to monitor pt.
[2020-02-03 05:50] LABS: HEMATOCRIT 33.5 % (37.0-47.0); HEMOGLOBIN 11.8 gm/dL (12.0-15.0); MCH 31.1 pg (26.0-34.0); MCHC 35.2 g/dL (28.0-37.0); MCV 88.4 fL (80.0-100.0); RBC 3.79 mil/uL (4.20-5.00); RDW 13.7 % (10.5-14.5); WBC 7.9 thou/uL (4.0-11.0)
[2020-02-03 06:08] LABS: CALCIUM 8.9 mg/dL (8.5-10.1); CREATININE 0.7 mg/dL (0.6-1.0); POTASSIUM 4.4 mmol/L (3.5-5.1)
[2020-02-03 07:45] VITALS: BP 151/65
--- NOTE | 2020-02-03 11:25 | NUR ---
ASSUMED CARE AT 0700, PT A&O X 4, NO ACUTE DISTRESS NOTED. VSS, O2 ON RA. PT DENIES ANY PAIN OR DISCOMFORT. STAND BY ASSIST USING GAITBELT. TRE TO BACK OF HEAD INPLACE, NO DRAINING OR SWELLING NOTED. TOLERATED MEDS WHOLE WITH WATER. PARTICIPATED IN KAMI THERAPIES. RESTING IN RECLINER, CALL LIGHT WITHIN REACH, WILL CONTINUE TO MONITOR PER POC.
--- NOTE | 2020-02-03 14:05 | NUR ---
team meeting, recommendation: [facility] ( nursing, pt, ot ). no dme needs. outpt neuropysch in 3 months [phone].
--- NOTE | 2020-02-03 14:10 | NUR ---
Nutrition: pt admitted to rehab unit, S/P fall, brain trauma, subdural hematoma. No surgical intervention. Notified of new admit via consult, no specific reason. Pt reports stable weights. 165-170# fluctuations. Fair appetite over the past several days, c/o nausea. Eating on average 50% of meals. Assisted pt with food preferences. Denies offer to assist in ordering meals. Understands process. Voices generally eating smaller more frequent meals due to hiatal hernia. Requests snacks from ns as desired. Meds include MVI and bowel regimen. No supplements at present. Consider low risk.
[2020-02-03 19:34] VITALS: BP 115/57
--- NOTE | 2020-02-04 03:50 | NUR ---
Assumed pt care at 1900. Pt's A/OX4, VSS. Denies pain on assessment. Up with SBA/GB w/o problems voiced. Pt declined to take her Miralax at HS stating she had a BM earlier day shift. Has 2 elodia on the back of her head,incision intact with bruising around it. No c/o dizziness verbalized at this time. Resting quietly with eyes closed at this time with no distress noted. Call light/personal items within reach, will continue to monitor pt.
[2020-02-04 07:45] VITALS: BP 136/65
--- NOTE | 2020-02-04 11:54 | NUR ---
AUGUSTUS reviewed chart. Discharge home with [facility] is anticipated for Sunday, 02/08. AUGUSTUS faxed referral to and notified Praveen in intake at of new referral and anticipated discharge date. Following to assist as needed with discharge planning.
--- NOTE | 2020-02-04 16:02 | NUR ---
ASSUMED CARE AT 0700, PT A&O X 4 NO ACUTE DISTRESS DURING SHIFT. VSS O2 ON RA. PT DENIES ANY PAIN OR DISCOMFORT. TOLERATED MEDS WHOLE WITH WATER. PARTICIPATED IN KAMI THERAPIES. PT REPORTED NO DIZZINESS. TRE TO HEAD IN PLACE, NO SWELLING OR BLEEDING TO AREA. CONTINENT OF B&B LAST BM 02/03/20 REFUSED KAMI MIRALAX TODAY. PT SITTING IN CHAIR, CALL LIGHT WITHIN REACH, WILL CONTINUE TO MONITOR PER POC.
[2020-02-04 19:21] VITALS: BP 121/57
--- NOTE | 2020-02-05 03:03 | NUR ---
ASSUMED CARE AT APPROX 1900 EVENING 02/03. PT SITTING UP IN RECLINER AT CHANGE OF SHIFT. PT ALERT AND ORIENTED X4, PLEASANT AND COOPERATIVE. PT CHANGED INTO GOWN AT HS AND TOOK HS MEDS WITH MIRALAX MIX TOLERATING WELL. PT UP TO BATHROOM TO VOID X1 SO FAR THIS NIGHT. BED ALARM ON AND CALL LIGHT IN REACH. WILL CONTINUE TO MONITOR.
[2020-02-05 07:01] LABS: BASOPHILS 0.5 % (0.0-2.0); EOSINOPHILS 3.8 % (0.0-3.0); HEMATOCRIT 32.4 % (37.0-47.0); HEMOGLOBIN 11.4 gm/dL (12.0-15.0); LYMPHOCYTES 21.3 % (24.0-44.0); MCH 31.3 pg (26.0-34.0); MCV 89.2 fL (80.0-100.0); PLATELET COUNT 399 thou/uL (150-400); POLYS 65.4 % (36.0-66.0); RBC 3.63 mil/uL (4.20-5.00); RDW 13.7 % (10.5-14.5); WBC 7.6 thou/uL (4.0-11.0)
[2020-02-05 07:04] LABS: CALCIUM 9.6 mg/dL (8.5-10.1); CREATININE 0.9 mg/dL (0.6-1.0); MAGNESIUM 1.9 mg/dL (1.8-2.4); POTASSIUM 4.5 mmol/L (3.5-5.1)
[2020-02-05 08:00] VITALS: BP 126/64
[2020-02-05 10:50] VITALS: BP 126/64
--- NOTE | 2020-02-05 18:14 | NUR ---
ASSUMED CARE OF PT AT 0700. PT IS A&OX4 AND VITAL SIGNS ARE STABLE. 2 TRE TO HEAD WELL APPROXIMATED, W/O DRAINAGE. DENIES DIZZINESS WITH TRANSFERS AND AMBULATION. DENIES PAIN AND PARTICIPATED IN SCHEDULED THERAPIES. CALLS APPROPRIATELY FOR ASSISTANCE, FALL PRECAUTIONS IN PLACE, NURSING WILL CONTINUE TO MONITOR.
[2020-02-05 19:49] VITALS: BP 129/66
--- NOTE | 2020-02-05 23:17 | NUR ---
ASSUMED CARE OF PT AT 1915. PT IS A&OX4. IS ON ROOM AIR. IS STABLE. IS UP WITH STANDBY ASSIST, GB. FALL PRECAUTIONS & HOURLY ROUNDING CONTINUED THIS SHIFT. LABS & VITALS REVIEWED. PT IS CURRENTLY IN BED SLEEPING. BED ALARM ON. CALL LIGHT WITHIN REACH. TRE TO BACK LEFT SIDE OF HEAD INTACT. DRSG TO LEFT FOREARM INTACT. WILL CONTINUE TO MONITOR.
[2020-02-06 08:00] VITALS: BP 136/64
[2020-02-06 19:25] VITALS: BP 132/62
--- NOTE | 2020-02-06 19:54 | NUR ---
ASSUMED CARE OF PT AT 0700. PT IS A&OX4 AND VITAL SIGNS ARE STABLE. PT DENIES PAIN AND PARTICIPATED IN SCHEDULED THERAPIES. PT CALLED FOR MEDS APPROPRIATELY. ORDERS TO MAKE MOD I IN ROOM. COMMUNICATED FALL PREVENTION WITH PATIENT. FALL PRECAUTIONS IN PLACE AND NURSING WILL CONTINUE TO MONITOR.
--- NOTE | 2020-02-07 03:33 | NUR ---
assumed care at approx 1900 evening 02/05. pt alert and oriented x4, pleasant and cooperative. pt modified indep in room tolerating well. pt took hs med with water no problems. pt stated she was tired from therapy. pt appears to be sleeping soundly with hourly rounding checks. call light in reach. will continue to monitor.
[2020-02-07 08:00] VITALS: BP 130/51
--- NOTE | 2020-02-07 18:01 | NUR ---
ASSUMED CARE OF PT AT 0700. PT IS A&OX4 AND VITAL SIGNS ARE STABLE. PT MOD I IN ROOM. 2 TRE REMOVED FROM SCALP PER ORDERS, SITE WELL APPROXIMATED. DENIES PAIN AND PARTICIPATED IN SCHEDULED THERAPIES. FALL PRCAUTIONS IN PLACE AND NURSING WILL CONTINUE TO MONITOR.
[2020-02-07 19:14] VITALS: BP 114/43
--- NOTE | 2020-02-08 00:37 | NUR ---
PT ALERT AND ORIENTED X 4. MODIFIED INDEPENDENT IN ROOM WITHOUT DIFFICULTY. PT CALLED FOR MEDICATIONS AT HS APPROPRIATELY. PT DENIES PAIN OR DISCOMFORT. BED ALARM ON FOR SAFETY. PT APPEARS TO BE SLEEPING ON HOURLY ROUNDS.
[2020-02-08 08:30] VITALS: BP 145/61
--- NOTE | 2020-02-08 09:58 | NUR ---
ASSUMED CARE AT 0700. PATIENT IS ALERT AND ORIENTED X4. PATIENT NÚÑEZ'S, INSTRUCTIONAL TECHNOLOGIST ARE EQUAL. LUNGS ARE CLEAR. ABD IS SOFT WITH BSX4. PATIENT HAD BM TODAY. PATIENT IS MOD/I IN ROOM. PATIENT IS UP INDEPENDENTLY. VOIDING LEONARD COLORED URINE. UP IN BED FOR BREAKFAST. FALL AND SAFETY PROTOCOLS IN PLACE. DENIES ANY PAIN AT THIS TIME. CONTINUES TO PROGRESS TOWARDS D/C GOALS. PLAN CT OF THE HEAD IN AM PRIOR TO DISCHARGE. WILL CONTINUE TO MONITER.
[2020-02-08 19:05] VITALS: BP 115/63
--- NOTE | 2020-02-09 01:41 | NUR ---
assumed care at approx 1900 evening 02/07. pt sitting up in bed watching tv at change of shift. pt alert and oriented x4, pleasant and cooperative. pt stated she was looking forward to being discharged. pt modified indep in room tolerating well. pt denied pain. took hs med with water tolerating well. pt appears to be sleeping soundly with hourly rounding check. call light in reach. will continue to monitor.
[2020-02-09 08:10] VITALS: BP 133/56
[2020-02-09 08:32] VITALS: BP 133/56
[2020-02-09] MEDS ORDERED: MIRALAX17 GM PO (08:35)
[2020-02-09] MEDS ORDERED: LIPITOR40 MG PO (08:35)
--- NOTE | 2020-02-09 09:44 | NUR ---
ASSUMED CARES AT 0700. PT AWAKE, ALERT AND ORIENTED*4. DENIES PAIN. VITALS REMAIN STABLE. HEAD INCISION REMAINS INTACT, DRIED BLOOD NOTED ON THE SITE. LS CLEAR, MILD RLL WHEEZING NOTED. PT PARTICIPATED IN ALL THERAPIES AND TOLERATED WELL. Q1H VISUAL CHECKS. CALL LIGHT WITHIN REACH
--- NOTE | 2020-02-09 13:54 | NUR ---
PT DISCHARGING TODAY TO HOME WITH [facility] FAXED DC ORDERS/SUMMARY SPOKE WITH AGUSTÍN IN INTAKE SHE RECEIVED ORDERS AND WILL NOTIFY PT TIME OF VISITS.
--- NOTE | 2020-02-11 12:19 | PLAN ---
[facility] [place] [address] REHAB UNIT PLAN OF CARE Name: WOLF GAVIRIA Room #: 510-P [facility] IN M.R.#: [id number] Admission: 02/02/20 Attend Phys: Trevin Lee MD Discharge: 02/09/20 Date of : 39 Report #: [id number] THIS REPORT FOR: //name// CC: Trevin Huddleston [facility] DATE OF SERVICE: 02/04/2020 PROGRESS NOTE AND OVERALL PLAN OF CARE HISTORY OF PRESENT ILLNESS: The patient is seen back today in followup. She is in no distress. Last recorded temperature is 98, pulse 65, respirations 20, and blood pressure 115/57. The patient is alert, appears pleasant. She thinks that the dizziness is gradually improving. Last sodium level was increased slightly to 125. She is working in therapies. Transfers are standby assistance, gait contact guard 150 feet without a device. She has been working on some stairs. Lower body dressing is min assist. As far as cognition, she does have mild cognitive deficits. She has functional memory. ASSESSMENT: 1. Fall with head injury. 2. Right frontoparietal and falx subdural hematoma. 3. 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 4. Hypertension. 5. Hyperlipidemia. 6. Hypothyroidism. PLAN: The overall plan of care is based on the preadmission screen, post-admission physician evaluation and information garnered from therapy assessments. 1. Estimated length of stay is probably about 5-6 days. Current plan for discharge for her is on 02/09/2020. 2. Medical prognosis is reasonably good. 3. Anticipated interventions includes the interdisciplinary acute inpatient rehabilitation program. 4. Anticipated functional outcomes would be for the patient to become modified independent with transfers, mobility, ADLs, cognition, decrease in dizziness, improvement in independence, so she can return back to the home setting. 5. Discharge destination would be back home with her family. 6. Expected therapy by discipline includes PT, OT, speech 1 hour per day each five days a week throughout the duration of the acute inpatient rehabilitation stay. <ELECTRONICALLY SIGNED> By: Trevin Lee MD 02/11/20 1219 [id number] Trevin Lee MD /nt
--- NOTE | 2020-02-11 12:19 | H ---
[facility] [place] [address] HISTORY AND PHYSICAL Name: WOLF GAVIRIA Room #: 510-P [facility] IN M.R.#: [id number] Admission: 02/02/20 Attend Phys: Trevin Lee MD Discharge: 02/09/20 Date of : 39 Report #: [id number] THIS REPORT FOR: cc: Flaquito Tompkins MD, Rene P. MD Smithson,Trevin Davenport MD ~ CC: Trevin Tompkins DATE OF SERVICE: 02/02/2020 POST-ADMISSION PHYSICIAN EVALUATION Please see my consult note dictation from yesterday and the history and physical dictation. HISTORY OF PRESENT ILLNESS: The patient is an 84-year-old white female who was originally hospitalized after a fall at home. The patient has a prior history of TIAs and was on Plavix. She was admitted after having a fall and hitting her head. She was seen by Neurosurgery after a CT scan showed a right frontoparietal infarct subdural hematoma. No surgical intervention was required. She did need elodia to the left occipital and parietal area. She also was found to have SIADH with sodium slowly increasing. She has balance, mobility, ADLs, cognitive issues and has been admitted for acute in-hospital inpatient rehabilitation. PAST MEDICAL HISTORY: Please see my consultation and the history and physical documentation. HABITS: Please see my consultation and the history and physical documentation. SOCIAL HISTORY: Please see my consultation and the history and physical documentation. ALLERGIES: Multiple as noted. MEDICATIONS: Please see the MAR. REVIEW OF SYSTEMS: As noted. She has some dizziness with activity. Denies nausea or vomiting at this point, although she has had some and needed some Zofran. Denies any visual changes. No chest pain, shortness of breath, abdominal discomfort. No focal extremity pain complaints. PHYSICAL EXAMINATION: GENERAL: Pleasant 84-year-old female in no obvious distress. VITAL SIGNS: Last recorded temperature 37, pulse 74, respirations 18, blood [facility] [address] [place] [address] HISTORY AND PHYSICAL Name: WOLF GAVIRIA Room #: 510-P [facility] IN ..#: [id number] Admission: 02/02/20 Attend Phys: Trevin Lee MD Discharge: 02/09/20 Date of : 39 Report #: [id number] pressure 151/65. NEUROLOGIC: The patient is alert. Facies appeared symmetric. EOMs no obvious nystagmus. CHEST: Sounded clear to auscultation. CARDIOVASCULAR: Regular rate and rhythm. ABDOMEN: Bowel sounds positive, nontender. GENITOURINARY AND RECTAL: Deferred. EXTREMITIES: Functionally, she is needing assistance at least contact guard for basic transfers and short distance ambulation, monitoring of mobility. She does have some mild short-term memory deficits. ASSESSMENT: An 84-year-old white female with the following problem list: 1. Fall with head injury. 2. Right frontoparietal infarcts subdural hematoma. 3. 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 4. Hypertension. 5. Hyperlipidemia. 6. Hypothyroidism. PLAN: The patient is admitted for acute in-hospital inpatient rehabilitation. Please see the history and physical documentation. Agree with as noted. From a postadmission physician evaluation perspective, there are no relevant changes since the preadmission screening. Please see the above review of prior and current medical and functional conditions and comorbidities. Please see the patient's previous and current functional status. As far as risk of complications, the patient has multiple medical comorbidities as noted above. Initial plan of care involves the interdisciplinary acute inpatient rehabilitation program. Measurable functional goals would be for the patient to become modified independent with transfers, mobility, ADLs and improved cognition, so that she can return back to the home setting. Prognosis is reasonably good with estimated length of stay probably at least 6 days. Tentative discharge is 02/09/2020. Potential barriers would include her multiple medical comorbidities and decreased functional status. <ELECTRONICALLY SIGNED> By: Trevin Lee MD 02/11/20 1219 [id number] Trevin Lee MD /[facility]
== END 2020-02-09 12:56 | disposition home health service (06) | DRG 83 ==
PROVIDERS: Nurse Practitioner; ADMIT Physical Medicine & Rehabilitation
DX: S06.5X9A Traumatic subdural hemorrhage with loss of consciousness of unspecified duration, initial encounter (principal); E22.2 Syndrome of inappropriate secretion of antidiuretic hormone; I10 Essential (primary) hypertension; E78.5 Hyperlipidemia, unspecified; E03.9 Hypothyroidism, unspecified; F41.9 Anxiety disorder, unspecified; K21.9 Gastro-esophageal reflux disease without esophagitis; W18.39XA Other fall on same level, initial encounter; K58.9 Irritable bowel syndrome, unspecified; Z86.73 Personal history of transient ischemic attack (TIA), and cerebral infarction without residual deficits; Z91.041 Radiographic dye allergy status; Z88.6 Allergy status to analgesic agent; Z88.8 Allergy status to other drugs, medicaments and biological substances; Z88.1 Allergy status to other antibiotic agents; Z90.49 Acquired absence of other specified parts of digestive tract; Y93.89 Activity, other specified; Y92.098 Other place in other non-institutional residence as the place of occurrence of the external cause; Y99.8 Other external cause status
CPT/HCPCS: 10112

== ENCOUNTER → 2020-03-03 | Outpatient (CLI) | payer OTHER, MEDICARE ==
[~2020-03-03] MED LIST changes: +LIPITOR40 MG PO; +MIRALAX17 GM PO
== END ==
LOC: CAT 09:31
DX: I61.8 Other nontraumatic intracerebral hemorrhage (principal)

== ENCOUNTER → 2020-06-02 | Outpatient (CLI) | payer OTHER, MEDICARE | LOC: RAD 11:11 | PROVIDERS: ATTEND Family Medicine | DX: M41.86 Other forms of scoliosis, lumbar region (principal); R19.5 Other fecal abnormalities; I70.0 Atherosclerosis of aorta ==

== ENCOUNTER → 2020-07-08 | Outpatient (CLI) | payer OTHER, MEDICARE | LOC: SJCVCIMAG 09:18 | PROVIDERS: ATTEND Internal Medicine | DX: I25.10 Atherosclerotic heart disease of native coronary artery without angina pectoris (principal); I10 Essential (primary) hypertension; E78.5 Hyperlipidemia, unspecified; R73.02 Impaired glucose tolerance (oral); Z79.899 Other long term (current) drug therapy; Z82.49 Family history of ischemic heart disease and other diseases of the circulatory system ==

== ENCOUNTER → 2021-01-06 | Outpatient (CLI) | payer OTHER, MEDICARE | LOC: SJCVC 10:17 | PROVIDERS: ATTEND Internal Medicine | DX: I25.10 Atherosclerotic heart disease of native coronary artery without angina pectoris (principal); I10 Essential (primary) hypertension; R73.02 Impaired glucose tolerance (oral); E78.5 Hyperlipidemia, unspecified; E34.0 Carcinoid syndrome; E78.00 Pure hypercholesterolemia, unspecified; Z79.899 Other long term (current) drug therapy; Z86.73 Personal history of transient ischemic attack (TIA), and cerebral infarction without residual deficits; Z88.1 Allergy status to other antibiotic agents; Z88.5 Allergy status to narcotic agent; Z88.6 Allergy status to analgesic agent; Z88.8 Allergy status to other drugs, medicaments and biological substances ==

== ENCOUNTER → 2021-03-04 | Outpatient (CLI) | payer OTHER, MEDICARE | LOC: CAT 09:57 | PROVIDERS: ATTEND Nurse Practitioner | DX: N28.1 Cyst of kidney, acquired (principal); K86.2 Cyst of pancreas; K44.9 Diaphragmatic hernia without obstruction or gangrene; K80.20 Calculus of gallbladder without cholecystitis without obstruction; K76.89 Other specified diseases of liver; M47.9 Spondylosis, unspecified; J98.11 Atelectasis ==

== ENCOUNTER → 2021-04-06 | Outpatient (CLI) | payer OTHER, MEDICARE | LOC: BC 09:56 | PROVIDERS: ATTEND Family Medicine | DX: Z12.31 Encounter for screening mammogram for malignant neoplasm of breast (principal) ==